=== PATIENT | female | born 1980 | race Two or more races ===

== ENCOUNTER 2016-04-22 13:34 | Emergency (ER) | payer MEDICAID ==
[~2016-04-22] VITALS: Ht 149.9 cm; Wt 49.9 kg
--- NOTE | 2016-04-22 14:41 | Emergency Room Report ---
History of Present Illness General Chief Complaint: Vomiting Source: Family Member, Medical Record Present Illness HPI 36 YO F presents with caregiver with "a few" episodes of vomiting since last night. Last was this morning. Tolerating PO since. Denies assoc fever/chills, abd pain, diarrhea, known sick contacts. Patient is developmentally delayed. Does not provide HPI at baseline. Caregivers state patient vomits at daycare but not at home. Not under any stress there that they know of. No recent changes/moves to her daycare or living situation. History of GERD. Allergies: Coded Allergies: No Known Allergies (Unverified , 04/22/16) Patient History Past Surgical History: none Pertinent Family History: none Social History: Denies: alcohol use, drug use, smoking Now: No Immunizations: UTD Reviewed Nursing Documentation: PMH: Agreed, PSxH: Agreed Nursing Documentation-PMH Past Medical History: No History, Except For Hx Gastrointestinal Problems: Yes - GERD, Gastritis, Review of Systems All Other Systems: limited - developmental delay Physical Exam Vital Signs Date Time Temp Pulse Resp B/P Pulse Ox O2 Delivery O2 Flow Rate FiO2 04/22/16 13:50 99.7 122 18 135/77 99 Room Air Sp02 EP Interpretation: reviewed, abnormal General Appearance: normal inspection, well appearing, no apparent distress, alert, GCS 15, non-toxic Head: normocephalic, atraumatic Eyes: bilateral eye EOMI, bilateral eye PERRL ENT: normal ENT inspection, hearing grossly normal, normal pharynx, no angioedema Neck: normal inspection, full range of motion, supple, thyroid normal, no meningismus, no bony tend Respiratory: normal inspection, lungs clear, normal breath sounds, no rhonchi, no respiratory distress, no retraction, no accessory muscle use, no wheezing Cardiovascular #1: regular rate, rhythm, no edema Gastrointestinal: normal inspection, normal bowel sounds, non tender, soft, no guarding, no hernia Genitourinary: no CVA tenderness Musculoskeletal: normal inspection, back normal, normal range of motion, Manju' s Sign negative Neurologic: normal inspection, alert, oriented x3, responsive, marine steward III-XII nml as tested, motor strength/tone normal, speech normal Psychiatric: normal inspection, mood/affect normal Skin: normal inspection, normal color, no rash Medical Decision Making Diagnostic Impression: Primary Impression: Vomiting Qualified Codes: R11.10 - Vomiting, unspecified ER Course Multiple episodes of vomiting but only at day care. VS notable for mild tachcyardia. Tolerating PO Zofran given in ED - continues to tolerate PO Negative abdominal exam on serial check Advised small meals, PRN zofran Rx, return for worsening symptoms Last Vital Signs Date Time Temp Pulse Resp B/P Pulse Ox O2 Delivery O2 Flow Rate FiO2 04/22/16 13:50 99.7 122 18 135/77 99 Room Air Status: improved Disposition: HOME, SELF-CARE Scripts Ondansetron Odt* (ZOFRAN ODT*) 4 Mg Tab.rapdis 4 MG ORAL BID Y for Nausea & Vomiting, #12 TAB 0 Refills Prov: MICHELLE COCHRAN M.D. 04/22/16 Referrals: NON PHYSICIAN (PCP) MICHELLE COCHRAN M.D. Apr 22, 2016 14:41
[2016-04-22] MEDS ORDERED: ZOFRAN ODT4 MG ORAL (15:19)
[2016-04-22 15:46] VITALS: BP 132/74
[2016-04-22 15:47] VITALS: BP 132/74
== END 2016-04-22 15:48 | disposition home or self-care (01) ==
LOC: EMR 14:25
DX: R11.10 Vomiting, unspecified (principal); K21.9 Gastro-esophageal reflux disease without esophagitis
CPT/HCPCS: 99283